=== PATIENT | male | born 1960 | race Caucasian/White ===

== ENCOUNTER → 2020-07-01 | Outpatient (CLI) | payer OTHER ==
[~2020-07-01] MED LIST: FLEXERIL 10 MG10 MG PO; GLIPIZIDE ER10 MG PO; IBUPROFEN800 MG PO; JANUMET 50-1,01 EACH PO; SIMVASTATIN10 MG PO; TORADOL 10 MG T10 MG PO; TOUJEO SQ; VITAMIN D50000 UNIT PO; ZANTAC300 MG PO; ZOFRAN4 MG PO
[2020-07-01 10:10] LABS: HEMOGLOBIN 13.9 gm/dl (14.0-17.5); RED BLOOD COUNT 5.09 M/UL (4.20-5.50); WHITE BLOOD COUNT 10.3 K/UL (4.5-11.0)
[2020-07-01 10:30] LABS: BUN/CREATININE RATIO 20 (0-10)
[2020-07-02 07:23] LABS: CREATININE, URINE 137.7 mg/dL (Not Estab.)
[2020-07-02 08:23] LABS: THYROXINE (T4) 7.9 ug/dL (4.5-12.0)
== END ==
LOC: LAB 08:45
PROVIDERS: Nurse Practitioner Family
DX: Z12.5 Encounter for screening for malignant neoplasm of prostate (principal); E11.9 Type 2 diabetes mellitus without complications; I10 Essential (primary) hypertension; E78.5 Hyperlipidemia, unspecified; R53.83 Other fatigue; E55.9 Vitamin D deficiency, unspecified
CPT/HCPCS: 36415; 80053; 80061; 82043; 82570; 82652; 83036; 84436; 84443; 84480; 85025; G0103

== ENCOUNTER → 2021-02-07 | Outpatient (CLI) | payer OTHER ==
[2021-02-07 12:25] LABS: RED BLOOD COUNT 4.94 M/UL (4.20-5.50); WHITE BLOOD COUNT 9.4 K/UL (4.5-11.0)
[2021-02-07 12:59] LABS: BUN/CREATININE RATIO 19 (0-10)
[2021-02-08 11:14] LABS: CREATININE, URINE 143.8 mg/dL (Not Estab.)
== END ==
LOC: LAB 11:19
PROVIDERS: Nurse Practitioner Family
DX: E11.9 Type 2 diabetes mellitus without complications (principal); E78.5 Hyperlipidemia, unspecified
CPT/HCPCS: 36415; 80053; 80061; 81001; 82043; 82570; 83036; 85025

== ENCOUNTER 2021-08-29 11:43 | Emergency (ER) | payer OTHER ==
[2021-08-29] MEDS ORDERED: CLEOCIN HCL150 MG PO (15:02)
== END 2021-08-29 15:15 | disposition home or self-care (01) ==
LOC: ER1 11:43
DX: L03.011 Cellulitis of right finger (principal); L02.511 Cutaneous abscess of right hand; E11.9 Type 2 diabetes mellitus without complications; Z79.4 Long term (current) use of insulin; Z88.5 Allergy status to narcotic agent
CPT/HCPCS: 73140; 99283

== ENCOUNTER 2021-09-10 19:42 | Inpatient (IN) | payer OTHER ==
[~2021-09-10] VITALS: Ht 175.3 cm; Wt 81.2 kg
[~2021-09-10 19:42] MED LIST changes: +CLEOCIN HCL150 MG PO; +IBUPROFEN600 MG PO; -IBUPROFEN800 MG PO
[2021-09-10 20:47] LABS: HEMOGLOBIN 12.3 gm/dl (14.0-17.5); RED BLOOD COUNT 4.42 M/UL (4.20-5.50); WHITE BLOOD COUNT 11.5 K/UL (4.5-11.0)
[2021-09-10 21:13] LABS: BUN/CREATININE RATIO 25 (0-10)
[2021-09-11] MEDS ORDERED: TRULICITY0.75 MG/0. SQ (12:34)
[2021-09-11] MEDS ORDERED: CITALOPRAM HBR20 MG PO (12:35)
[2021-09-11] MEDS ORDERED: FLONASE 0.05% N16 GM (12:38)
[2021-09-11] MEDS ORDERED: NOVOLOG FL100 UNIT/1 SQ (12:41)
[2021-09-11] MEDS ORDERED: LEVEMIR FL100 UNIT/1 SQ (12:42)
[2021-09-11] MEDS ORDERED: PROTONIX40 MG PO (12:43)
[2021-09-11] MEDS ORDERED: METFORMIN HCL1000 MG PO (12:43)
[2021-09-11] MEDS ORDERED: ATORVASTATIN CA10 MG PO (12:43)
[2021-09-11] MEDS ORDERED: ONE-A-DAY MEN'1 EAC2 PO (12:44)
[2021-09-12 06:52] LABS: HEMOGLOBIN 12.2 gm/dl (14.0-17.5); RED BLOOD COUNT 4.45 M/UL (4.20-5.50); WHITE BLOOD COUNT 11.4 K/UL (4.5-11.0)
[2021-09-12 07:14] LABS: BUN/CREATININE RATIO 17 (0-10)
[2021-09-13 06:38] LABS: RED BLOOD COUNT 4.49 M/UL (4.20-5.50)
[2021-09-13 06:41] LABS: WHITE BLOOD COUNT 8.5 K/UL (4.5-11.0)
[2021-09-13 07:13] LABS: BUN/CREATININE RATIO 16 (0-10)
== END 2021-09-13 12:14 | disposition home or self-care (01) | DRG 440 ==
LOC: ER1 19:42 → CDU 09-11 03:50 → MED SURG 4 09-11 11:14
PROVIDERS: Internal Medicine; Physician Assistant; ADMIT Internal Medicine
DX: K85.00 Idiopathic acute pancreatitis without necrosis or infection (principal); E11.9 Type 2 diabetes mellitus without complications; Z20.822 Contact with and (suspected) exposure to COVID-19; E78.5 Hyperlipidemia, unspecified; Z90.49 Acquired absence of other specified parts of digestive tract; Z88.6 Allergy status to analgesic agent; Z80.0 Family history of malignant neoplasm of digestive organs; Z79.4 Long term (current) use of insulin; Z87.891 Personal history of nicotine dependence
CPT/HCPCS: 36415; 71045; 74181; 76705; 80048; 80053; 81001; 82150; 82962; 83690; 83735; 84478; 85025; 85027; 87040; 96374; 96375; 96376; 99285; C9113; J0696; J0780; J1650; J2270; J2405; Q9967; U0002